=== PATIENT | male | born 1950 | race Caucasian/White ===

== ENCOUNTER 2018-04-09 16:15 | Emergency (ER) | payer BC, OTHER ==
--- NOTE | 2018-04-09 16:38 | ED Physician Documentation ---
PD HPI MALE - Stated complaint Stated Complaint: MALE - Chief complaint Chief Complaint: Abd Pain - History obtained from History obtained from: Patient - History of Present Illness Timing - onset: Today Timing - duration: Hours (he has had dietrich for about a week due to retention. Has appt with Urology tomorrow. Horace stopped draining few hours ago. Has had some blood at times.) Timing - details: Abrupt onset Associated symptoms: Dietrich problem Similar symptoms before: Has not had sx before Recently seen: Emergency Dept Review of Systems Constitutional: denies: Fever, Chills : reports: Hematuria Skin: denies: Rash, Lesions PD PAST MEDICAL HISTORY - Present Medications Home Medications: Ambulatory Orders Medication Instructions Recorded Confirmed Atorvastatin [Lipitor] 04/09/18 Losartan/Hydrochlorothiazide 04/09/18 [Losartan-Hctz 100-12.5 mg Tab] Tamsulosin HCl [Flomax] 04/09/18 04/09/18 amLODIPine [Norvasc] 04/09/18 - Allergies Allergies/Adverse Reactions: Allergies Allergy/AdvReac Type Severity Reaction Status Date / Time No Known Drug Allergies Allergy Verified 04/09/18 16:31 PD ED PE NORMAL - Vitals Vital signs reviewed: Yes - General General: Alert and oriented X 3, No acute distress, Well developed/nourished - Male Male : Other (dietrich in place. Bag empty. ) - Back Back: No CVA TTP - Derm Derm: Normal color, Warm and dry - Neuro Neuro: Alert and oriented X 3, No motor deficit, Normal speech Results - Vitals Vitals: Oxygen O2 Source Room air PD MEDICAL DECISION MAKING - ED course Complexity details: re-evaluated patient (Nurse flushed dietrich, got some sediment and clots out and the tube is draining well now. ), considered differential (dietrich was not draining and he is seeing Urology tomorrow. Options of removal now but may have retention overnight, or just flush it and get into tomorrow. Opted for just flushing. ), d/w patient - Sepsis Event Vital Signs: Oxygen O2 Source Room air Departure - Departure Disposition: 01 Home, Self Care Clinical Impression: Dietrich catheter problem Qualifiers: Encounter type: initial encounter Qualified Code(s): T83.9XXA - Unspecified complication of genitourinary prosthetic device, implant and graft, initial encounter Condition: Stable Record reviewed to determine appropriate education?: Yes Instructions: ED Catheter Care Dietrcih Follow-Up: TREVOR VILLEGAS MD [Primary Care Provider] - Comments: Continue the Dietrich catheter care. Follow-up with urology tomorrow as planned. Return if problems. Discharge Date/Time: 04/09/18 18:05
[2018-04-09 17:58] VITALS: BP 160/90
== END 2018-04-09 18:05 | disposition home or self-care (01) ==
LOC: ED 16:15
DX: T83.091A Other mechanical complication of indwelling urethral catheter, initial encounter (principal)
CPT/HCPCS: 51798; 99282; 99283

== ENCOUNTER 2020-07-09 10:32 | Outpatient (CLI) | payer OTHER ==
[2020-07-09 19:42] LABS: HEMOGLOBIN A1c% 5.9 % (4.27-6.07)
== END 2020-07-09 10:33 | disposition home or self-care (01) ==
LOC: LAB.S 10:32
PROVIDERS: ATTEND Family Medicine
DX: R73.09 Other abnormal glucose (principal); N40.0 Benign prostatic hyperplasia without lower urinary tract symptoms
CPT/HCPCS: 36415; 83036; 84153

== ENCOUNTER 2021-03-26 08:04 | Outpatient (CLI) | payer OTHER ==
[2021-03-26 16:49] LABS: ALBUMIN 4.6 g/dL (3.2-5.5); ALBUMIN/GLOBULIN RATIO 1.5 (1.0-2.2); ALKALINE PHOSPHATASE 43 IU/L (42-121); ALT ALANINE AMINOTRANSFERASE 50 IU/L (10-60); AST ASPARTATE AMINOTRANSFERASE 33 IU/L (10-42); BUN - BLOOD UREA NITROGEN 30 mg/dL (6-20); CARBON DIOXIDE - CO2 25 mmol/L (21-32); CHLORIDE 100 mmol/L (101-111); CHOL/HDL RATIO 3.1 (<5.0); CHOLESTEROL 197 mg/dL; CREATININE 1.2 mg/dL (0.6-1.2); GFR - MDRD 60 (>89); GLUCOSE 108 mg/dL (70-100); HDL CHOLESTEROL 64 mg/dL; LDL CHOLESTEROL,CALCULATED 109 mg/dL; LDL/HDL RATIO 1.7 (<3.6); POTASSIUM 4.2 mmol/L (3.5-5.0); SODIUM 135 mmol/L (135-145); TOTAL PROTEIN 7.7 g/dL (6.7-8.2); TRIGLYCERIDES 119 mg/dL; VLDL CHOLESTEROL 24 mg/dL
[2021-03-26 22:00] LABS: ESTIMATED AVERAGE GLUCOSE 114 mg/dL (70-100); HEMOGLOBIN A1c% 5.6 % (4.27-6.07)
== END 2021-03-26 08:05 | disposition home or self-care (01) ==
LOC: LAB.S 08:04
PROVIDERS: ATTEND Family Medicine
DX: R73.09 Other abnormal glucose (principal); E78.5 Hyperlipidemia, unspecified; N40.0 Benign prostatic hyperplasia without lower urinary tract symptoms; I10 Essential (primary) hypertension
CPT/HCPCS: 36415; 80053; 80061; 83036; 83721; 84153

== ENCOUNTER 2021-04-26 22:07 | Emergency (ER) | payer MEDICARE, BC ==
--- NOTE | 2021-04-26 23:23 | ED Physician Documentation ---
PD HPI MALE - Stated complaint Stated Complaint: UNABLE TO URINATE - Chief complaint Chief Complaint: General - History obtained from History obtained from: Patient - History of Present Illness Timing - onset: Enter time (17:00), Today Timing - details: Gradual onset Associated symptoms: Unable to urinate. No: Dysuria, Urinary frequency Similar symptoms before: Other (has had previous episode of urinary retention requiring temporary dietrich catheter) - Additional information Additional information: c/o increasing urge to urinate but no urine output since 5 PM associated with suprapubic pain and pressure Review of Systems Constitutional: denies: Fever : reports: Unable to Void. denies: Dysuria, Frequency PD PAST MEDICAL HISTORY - Past Medical History Past Medical History: Yes : Retention, Indwelling catheter - Past Surgical History Past Surgical History: Yes General: Colonoscopy - Present Medications Home Medications: Ambulatory Orders Medication Instructions Recorded Confirmed Atorvastatin [Lipitor] 04/09/18 Losartan/Hydrochlorothiazide 04/09/18 [Losartan-Hctz 100-12.5 mg Tab] Tamsulosin HCl [Flomax] 04/09/18 04/09/18 amLODIPine [Norvasc] 04/09/18 - Allergies Allergies/Adverse Reactions: Allergies Allergy/AdvReac Type Severity Reaction Status Date / Time No Known Drug Allergies Allergy Verified 04/26/21 22:19 - Social History Does the pt smoke?: No Smoking Status: Never smoker Does the pt drink ETOH?: Yes Does the pt have substance abuse?: No - Immunizations Immunizations are current?: Yes - POLST Patient has POLST: No PD ED PE NORMAL - Vitals Vital signs reviewed: Yes - General General: Alert and oriented X 3, No acute distress, Well developed/nourished - Abdomen Abdomen: Soft, Other (mild TTP and fullness suprapubic area) - Back Back: No CVA TTP Results - Vitals Vitals: Oxygen O2 Source Room air - Labs Labs: Laboratory Tests 04/26/21 22:34 Urine Color YELLOW Urine Clarity CLEAR Urine pH 5.0 Ur Specific [place] 1.010 Urine Protein NEGATIVE Urine Glucose (UA) NEGATIVE Urine Ketones NEGATIVE Urine Occult Blood MODERATE H Urine Nitrite NEGATIVE Urine Bilirubin NEGATIVE Urine Urobilinogen 0.2 (NORMAL) Ur Leukocyte Esterase NEGATIVE Urine RBC 6-10 H Urine WBC 0-3 Ur Squamous Epith Cells RARE Squamous Urine Bacteria None Seen Ur Microscopic Review INDICATED Urine Culture Comments NOT INDICATED PD MEDICAL DECISION MAKING - ED course Complexity details: reviewed results, re-evaluated patient, considered dif ferential, d/w patient ED course: dietrich catheter placed after bladder scan result of 889 ml; over 1500 cc urine output into dietrich with complete resolution of symptoms. discharged with dietrich in place Departure - Departure Disposition: Home, Self Care Clinical Impression: Urinary retention Condition: Good Instructions: ED Catheter Care Dietrich, ED Retention Urinary Male Follow-Up: lAek Martinez MD [Primary Care Provider] - Comments: Follow up with your urologist in 3-5 days for removal of the catheter. If this cannot be arranged in this time frame, you can try to arrange for an appointment with your primary care provider or else return to the emergency department. Discharge Date/Time: 04/27/21 00:45
[2021-04-26 23:47] LABS: BILIRUBIN,URINE NEGATIVE (NEGATIVE); GLUCOSE, URINE (UA) NEGATIVE (NEGATIVE); KETONES,URINE (UA) NEGATIVE (NEGATIVE); LEUKOCYTE ESTERASE, URINE NEGATIVE (NEGATIVE); NITRITE,URINE NEGATIVE (NEGATIVE); OCCULT BLOOD,URINE MODERATE (NEGATIVE); PROTEIN,URINE NEGATIVE (NEGATIVE); UROBILINOGEN,URINE 0.2 (NORMAL) E.U./dL (NORMAL)
[2021-04-26 23:48] LABS: CLARITY,URINE CLEAR (CLEAR)
[2021-04-26 23:53] LABS: SQUAMOUS EPITHELIAL CELL,UR RARE Squamous (<= Few); WBC,URINE 0-3 /HPF (0-3)
[2021-04-26 23:54] LABS: BACTERIA,URINE None Seen /HPF (None Seen)
[2021-04-27 00:47] VITALS: BP 122/68
== END 2021-04-27 00:45 | disposition home or self-care (01) ==
LOC: ED 22:07
DX: R33.9 Retention of urine, unspecified (principal)
CPT/HCPCS: 51702; 51798; 81001; 81003; 87086; 99282; 99283

== ENCOUNTER 2021-05-04 02:58 | Emergency (ER) | payer MEDICARE, BC ==
[2021-05-04 04:36] LABS: BILIRUBIN,URINE NEGATIVE (NEGATIVE); GLUCOSE, URINE (UA) NEGATIVE (NEGATIVE); KETONES,URINE (UA) NEGATIVE (NEGATIVE); LEUKOCYTE ESTERASE, URINE NEGATIVE (NEGATIVE); NITRITE,URINE POSITIVE (NEGATIVE); OCCULT BLOOD,URINE LARGE (NEGATIVE); PROTEIN,URINE NEGATIVE (NEGATIVE); UROBILINOGEN,URINE 0.2 (NORMAL) E.U./dL (NORMAL)
[2021-05-04 04:37] LABS: CLARITY,URINE CLEAR (CLEAR)
[2021-05-04 04:42] LABS: BACTERIA,URINE Few /HPF (None Seen); RBC,URINE TNTC /HPF (0-5); SQUAMOUS EPITHELIAL CELL,UR NONE SEEN (<= Few); WBC,URINE 0-3 /HPF (0-3)
--- NOTE | 2021-05-04 04:47 | ED Physician Documentation ---
PD HPI MALE - Stated complaint Stated Complaint: UNABLE TO URINATE - Chief complaint Chief Complaint: Abd Pain - History obtained from History obtained from: Patient - History of Present Illness Timing - onset: How many days ago (2) Timing - duration: Days (2) Timing - details: Gradual onset, Still present Associated symptoms: Urinary frequency, Unable to urinate PD HPI MALE CONTRIB FACTORS: Other (recent urinary retention) Similar symptoms before: Diagnosis (urinary retention) Recently seen: Emergency Dept - Additional information Additional information: 70-year-old male with a history of recent urinary retention had a Dietrich catheter placed here in the emerge department 1 week ago. He was followed up with his urologist and had his catheter removed that day #5. They did encourage the patient to keep the catheter in longer and he wanted to give it a try and since the catheter has been out he has been having some difficulty with urine. Today he is unable to go. He presents again today with lower abdominal distention and inability to urinate. Review of Systems Constitutional: denies: Fever Nose: denies: Congestion Throat: denies: Sore throat Cardiac: denies: Chest pain / pressure Respiratory: denies: Cough GI: denies: Vomiting : reports: Dysuria, Unable to Void PD PAST MEDICAL HISTORY - Past Medical History : Retention, Indwelling catheter - Past Surgical History Past Surgical History: Yes General: Colonoscopy - Present Medications Home Medications: Ambulatory Orders Medication Instructions Recorded Confirmed Atorvastatin [Lipitor] 04/09/18 Losartan/Hydrochlorothiazide 04/09/18 [Losartan-Hctz 100-12.5 mg Tab] Tamsulosin HCl [Flomax] 04/09/18 04/09/18 amLODIPine [Norvasc] 04/09/18 cephALEXin [Keflex] 500 mg PO Q6H #28 cap 05/04/21 - Allergies Allergies/Adverse Reactions: Allergies Allergy/AdvReac Type Severity Reaction Status Date / Time No Known Drug Allergies Allergy Verified 04/26/21 22:19 - Social History Does the pt smoke?: No Smoking Status: Never smoker Does the pt drink ETOH?: Yes Does the pt have substance abuse?: No - Immunizations Immunizations are current?: Yes - POLST Patient has POLST: No PD ED PE NORMAL - Vitals Vital signs reviewed: Yes (hypertensive ) - General General: Alert and oriented X 3, No acute distress, Well developed/nourished, Other (examined after placement of dietrich) - HEENT HEENT: Atraumatic, PERRL, EOMI - Neck Neck: Supple, no meningeal sign, No bony TTP - Cardiac Cardiac: RRR, Other (2/6 holosystolic murmer at LSB) - Respiratory Respiratory: No respiratory distress, Clear bilaterally - Abdomen Abdomen: Normal bowel sounds, Soft, Non tender, Non distended, No organomegaly - Back Back: No CVA TTP, No spinal TTP - Derm Derm: Normal color, Warm and dry, No rash - Extremities Extremities: No deformity, No edema - Neuro Neuro: Alert and oriented X 3, 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, No motor deficit, No sensory deficit, Normal speech Eye Opening: Spontaneous Motor: Obeys Commands Verbal: Oriented GCS Score: 15 - Psych Psych: Normal mood, Normal affect Results - Vitals Vitals: Vital Signs - 24 hr 05/04/21 03:06 Temperature 36.0 C L Heart Rate 93 Respiratory 18 Rate Blood Pressure 167/96 H O2 Saturation 100 Oxygen O2 Source Room air - Labs Labs: Laboratory Tests 05/04/21 04:32 Urine Color YELLOW Urine Clarity CLEAR Urine pH 5.0 Ur Specific [place] 1.015 Urine Protein NEGATIVE Urine Glucose (UA) NEGATIVE Urine Ketones NEGATIVE Urine Occult Blood LARGE H Urine Nitrite POSITIVE H Urine Bilirubin NEGATIVE Urine Urobilinogen 0.2 (NORMAL) Ur Leukocyte Esterase NEGATIVE Urine RBC TNTC H Urine WBC 0-3 Ur Squamous Epith Cells NONE SEEN Urine Bacteria Few Ur Microscopic Review INDICATED Urine Culture Comments INDICATED PD MEDICAL DECISION MAKING - ED course Complexity details: reviewed old records, reviewed results, re-evaluated patient, considered differential, d/w patient ED course: 70-year-old male seen in the emergency department last week for urinary retention has failed his voiding trial. He did present for the voiding trial prematurely. He does understand now that he will need to leave this catheter in place for 2 weeks. There is evidence of infection on microscopic examination of the urine including bacteria and nitrite in the urine. The patient has had some symptoms associated with this we will treat for urinary tract infection. Departure - Departure Disposition: 01 Home, Self Care Clinical Impression: Urinary retention Urinary tract infection Qualifiers: Urinary tract infection type: catheter-associated UTI Indwelling urinary catheter type: indwelling urethral catheter Encounter type: initial encounter Qualified Code(s): T83.511A - Infection and inflammatory reaction due to indwelling urethral catheter, initial encounter; N39.0 - Urinary tract infection, site not specified Instructions: ED UTI Cystitis Male, ED Retention Urinary Male, ED Catheter Care Dietrich Follow-Up: Alek Martinez MD [Primary Care Provider] - Prescriptions: cephALEXin [Keflex] 500 mg PO Q6H #28 cap Comments: You will need to have this catheter in place for about 2 weeks. Followup with your urologist.
[2021-05-04 06:04] VITALS: BP 141/87
--- NOTE | 2021-05-06 17:49 | ED Physician Documentation ---
ED Addendum - Addendum Addendum: Urine culture which is resulting in staph epidermidis. It is sensitive to oxacillin. It does not have specific testing to cephalosporins. The patient was discharged on Keflex. I think given the oxacillin sensitivity that the cephalosporins are likely good for this. I would not change treatment at this time based on that. 05/06/21 17:48
== END 2021-05-04 06:02 | disposition home or self-care (01) ==
LOC: ED 02:58
DX: T83.511A Infection and inflammatory reaction due to indwelling urethral catheter, initial encounter (principal); R33.9 Retention of urine, unspecified
CPT/HCPCS: 51702; 51798; 81001; 81003; 87077; 87086; 87181; 99283

== ENCOUNTER 2021-05-22 08:00 | Outpatient (CLI) | payer MEDICARE, BC ==
[2021-05-22 15:56] LABS: BILIRUBIN,URINE NEGATIVE (NEGATIVE); GLUCOSE, URINE (UA) NEGATIVE (NEGATIVE); KETONES,URINE (UA) NEGATIVE (NEGATIVE); LEUKOCYTE ESTERASE, URINE SMALL (NEGATIVE); NITRITE,URINE POSITIVE (NEGATIVE); OCCULT BLOOD,URINE NEGATIVE (NEGATIVE); PROTEIN,URINE NEGATIVE (NEGATIVE); UROBILINOGEN,URINE 0.2 (NORMAL) E.U./dL (NORMAL)
[2021-05-22 15:57] LABS: BACTERIA,URINE Moderate /HPF (None Seen); CLARITY,URINE SL. CLOUDY (CLEAR); RBC,URINE None Seen /HPF (0-5); SQUAMOUS EPITHELIAL CELL,UR RARE Squamous (<= Few)
== END 2021-05-22 23:59 | disposition home or self-care (01) ==
LOC: LAB.S 08:00
PROVIDERS: ATTEND Emergency Medicine
DX: N41.9 Inflammatory disease of prostate, unspecified (principal)
CPT/HCPCS: 81001; 87077; 87086; 87181

== ENCOUNTER 2023-05-20 08:18 | Outpatient (CLI) | payer MEDICARE, BC ==
[2023-05-20 14:23] LABS: HCT - HEMATOCRIT 36.7 % (42.0-52.0); HGB - HEMOGLOBIN 12.5 g/dL (14.0-18.0); MEAN CORPUSCULAR HEMOGLOBIN 32.2 pg (27.0-31.0); MEAN CORPUSCULAR HGB CONC 34.1 g/dL (32.0-36.0); MEAN CORPUSCULAR VOLUME 94.6 fL (80.0-94.0); MEAN PLATELET VOLUME 10.3 fL (7.4-11.4); RED BLOOD COUNT 3.88 10^6/uL (4.70-6.10); RED CELL DISTRIBUTION WIDTH 12.7 % (12.0-15.0); WHITE BLOOD COUNT 6.9 x10^3/uL (4.8-10.8)
[2023-05-20 16:39] LABS: ALBUMIN 4.5 g/dL (3.2-5.5); ALBUMIN/GLOBULIN RATIO 1.6 (1.0-2.2); BILIRUBIN,TOTAL 0.7 mg/dL (0.2-1.0); CALCIUM 9.3 mg/dL (8.5-10.3); CREATININE 0.9 mg/dL (0.6-1.3); POTASSIUM 4.2 mmol/L (3.5-4.5); TOTAL PROTEIN 7.4 g/dL (6.4-8.9)
== END 2023-05-20 08:19 | disposition home or self-care (01) ==
LOC: LAB.S 08:18
PROVIDERS: ATTEND Nurse Practitioner
DX: R77.9 Abnormality of plasma protein, unspecified (principal)
CPT/HCPCS: 36415; 80053; 85027